=== PATIENT | female | born 1990 | race Caucasian/White ===

== ENCOUNTER 2018-04-08 13:32 | Outpatient (CLI) | payer MEDICAID ==
--- NOTE | 2018-04-08 14:32 | ULT ---
PELVIC ULTRASOUND: HISTORY: Lost IUD thread. Evaluate IUD. FINDINGS: Multiple longitudinal and transverse images of the pelvis were obtained using a multihertz curvilinea r transducer. Real-time, color flow, and spectral waveform Doppler analysis demonstrates the uterus to measure 9.3 x 4.2 x 4.4 cm. No evidence of uterine mass is seen. There is an area of echogenicit y seen in the lower uterine segment most compatible with an intrauterine device. The full extent of the IUD is not visible on sonography. No evidence of free pelvic fluid seen. Both ovaries visualized with good blood flow. Right ovary me asures 1.9 x 1.2 x 1.2 cm while the left ovary measures 3.1 x 1.5 x 2.4 cm. Good blood flow is seen in both ovaries. IMPRESSION: Intrauterine device visualized within the uterine canal. POS: [facility]
== END 2018-04-08 13:33 | disposition home or self-care (01) ==
LOC: BICULT 13:32
PROVIDERS: ATTEND Nurse Practitioner Women's Health
DX: T83.32XD Displacement of intrauterine contraceptive device, subsequent encounter (principal)
CPT/HCPCS: 76856

== ENCOUNTER 2018-05-14 23:15 | Emergency (ER) | payer MEDICAID, SELFPAY ==
[2018-05-14 23:52] LABS: #Eosinphils 0.1 thou/uL (0.0-0.7); #Lymphocytes 2.1 thou/uL (1.20-3.40); #Monocytes 0.5 thou/uL (0.11-0.59); #Neutrophils 7.7 thou/uL (1.40-6.50); %Basophils 0.4 % (0.0-1.0); %Eosinophils 0.6 % (0.0-10.0); %Lymphocytes 19.9 % (21.0-51.0); %Monocytes 4.6 % (0.0-10.0); %Neutrophils 74.5 % (42.0-75.0); Hemoglobin 14.5 g/dL (12.0-16.0); Mean Corpuscular HGB CONC 35.3 g/dL (32.0-36.0); Mean Corpuscular Hemoglobin 30.4 pg (27.0-31.0); Mean Platelet Volume 11.9 fL (7.4-10.4); Platelet Count 142 thou/uL (130-400); RBC Distribution Width 12.9 % (11.5-14.5); Red Blood Cell (RBC) Count 4.77 mill/uL (4.20-5.40); White Blood Cell (WBC) Count 10.4 thou/uL (4.8-10.8)
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
[2018-05-15 00:07] LABS: BHCG - Serum Negative (NEGATIVE); Pregs Control Background? CLEAR/WHITE (CLR/WHITE); Pregs Control Bar Appear? YES (CONTROL BAR)
[2018-05-15 00:09] LABS: ALT (SGPT) 42 U/L (8-55); AST (SGOT) 30 U/L (5-34); Albumin 4.2 g/dL (3.5-5.0); Alcohol Less than 10 mg/dL (Less than 10); Alkaline Phosphatase 63 U/L (40-150); Anion Gap 13 mmol/L (10-20); BUN (Urea Nitrogen) 10 mg/dL (7.0-18.7); Bilirubin, Total 0.4 mg/dL (0.2-1.2); Calc. Creatinine Clearance 0 mL/min (70-130); Calcium 9.3 mg/dL (7.8-10.44); Carbon Dioxide 26 mmol/L (22-29); Chloride 105 mmol/L (98-107); Estimated GFR-MDRD Greater than 90; Globulin 3.1 g/dL (2.4-3.5); Glucose 109 mg/dL (70-105); Potassium 3.4 mmol/L (3.5-5.1); Protein, Total 7.3 g/dL (6.0-8.3); Sodium 141 mmol/L (136-145)
== END 2018-05-15 00:52 | disposition home or self-care (01) ==
LOC: ERS 23:15
DX: S06.9X1A Unspecified intracranial injury with loss of consciousness of 30 minutes or less, initial encounter (principal); T71.9XXA Asphyxiation due to unspecified cause, initial encounter; F41.9 Anxiety disorder, unspecified; F32.9 Major depressive disorder, single episode, unspecified; F17.210 Nicotine dependence, cigarettes, uncomplicated; Y04.0XXA Assault by unarmed brawl or fight, initial encounter
CPT/HCPCS: 36415; 70450; 80053; 80307; 84703; 85025; 96360